=== PATIENT | male | born 1945 ===

== ENCOUNTER 2017-10-05 11:43 | Emergency (ER) | payer MEDICARE ==
[2017-10-05 11:47] VITALS: BMI 32.5
[2017-10-05 11:50] VITALS: RESP 18; O2SAT 96
[2017-10-05] MEDS ORDERED: LIDOCAIN/EPI 1-0.001% 10ML INJ SOL IJ ONE (12:25)
--- NOTE | 2017-10-05 12:25 | ED PDOC ---
Arrival/HPI - General Chief Complaint: Trauma Time Seen by Provider: 10/05/17 12:24 Historian: Patient - History of Present Illness Narrative History of Present Illness (Text): 10/05/17 12:25 This 71 yo male with a pmh htn, presents to this ED c/o right forearm laceration x [employer]. Patient stated while standing on a ladder, he fell down. He said he cut his forearm with edge of a chimney. Last tetanus was 6 years ago. Patient has FROM of forearm, wrist, hand, elbow and shoulder. Patient denies head injury, neck pain, dizziness, weakness, paresthesias, or abnormal gait. Time/Duration: Other (see hpi) Context: Home Past Medical History - Provider Review Nursing Documentation Reviewed: Yes - Infectious Disease Hx of Infectious Diseases: None - Cardiac Hx Pacemaker: Yes - Genitourinary/Gynecological Hx Prostate Cancer: Yes Hx Prostate Problems: Yes - Psychiatric Hx Substance Use: No - Surgical History Hx Appendectomy: Yes Hx Cholecystectomy: Yes Other/Comment: bypass surgery. Unknown type of brain surgery Family/Social History - Physician Review Nursing Documentation Reviewed: Yes Family/Social History: Other (noncontributory) Smoking Status: Never Smoked Hx Alcohol Use: No Hx Substance Use: No Allergies/Home Meds Allergies/Adverse Reactions: Allergies No Known Allergies Allergy (Verified 10/05/17 11:47) Home Medications: Home Meds Medication Instructions Recorded Confirmed Aspirin [Aspirin Chewable] 81 mg PO DAILY 10/05/17 10/05/17 Losartan [Cozaar] 25 mg PO DAILY 10/05/17 10/05/17 Review of Systems - Review of Systems Constitutional: Normal. absent: Fatigue, Weight Change, Fevers Eyes: Normal ENT: Normal Respiratory: Normal Cardiovascular: Normal Gastrointestinal: Normal Genitourinary Male: Normal Musculoskeletal: Other (se hpi) Skin: Normal Neurological: Normal Endocrine: Normal Hemo/Lymphatic: Normal Psychiatric: Normal Physical Exam Vital Signs Temp Pulse Resp BP Pulse Ox 10/05/17 13:54 98.4 F 82 18 152/82 H 96 10/05/17 13:36 82 18 152/82 H 96 10/05/17 11:44 98.7 F 87 18 156/77 H 96 Temperature: Afebrile Blood Pressure: Normal Pulse: Regular Respiratory Rate: Normal Appearance: Positive for: Well-Appearing, Non-Toxic, Comfortable Pain Distress: None Mental Status: Positive for: Alert and Oriented X 3 - Systems Exam Head: Present: Atraumatic, Normocephalic, Other (no raccoon sign. no rosas sign) Pupils: Present: PERRL, Other (no hyphema) Extroacular Muscles: Present: EOMI. No: Entrapment Conjunctiva: Present: Normal Ears: Present: Normal, NORMAL TM, Normal Canal, Other (no hemotympanum). No: Erythema, TM Bulging, Fluid Mouth: Present: Moist Mucous Membranes Nose (External): Present: Atraumatic Nose (Internal): Present: Normal Inspection Neck: Present: Normal Range of Motion, Trachea Midline. No: Meningeal Signs, MIDLINE TENDERNESS, Paraspinal Tenderness, Lymphadenopathy Respiratory/Chest: Present: Clear to Auscultation, Good Air Exchange. No: Respiratory Distress, Accessory Muscle Use, Retracting, Rhonchi Cardiovascular: Present: Regular Rate and Rhythm, Normal S1, S2. No: Murmurs Abdomen: No: Tenderness, Distention, Peritoneal Signs, Rebound, Guarding Back: Present: Normal Inspection. No: CVA Tenderness Upper Extremity: Present: Normal Inspection, Normal ROM. No: Cyanosis, Edema Lower Extremity: Present: Normal Inspection, Normal ROM. No: Edema Neurological: Present: GCS=15, CN II-XII Intact, Speech Normal, Motor Func Grossly Intact, Normal Sensory Function, Normal Cerebellar Funct, Gait Normal Skin: Present: Warm, Dry, Normal Color. No: Rashes Psychiatric: Present: Alert, Oriented x 3, Normal Insight, Normal Concentration Medical Decision Making ED Course and Treatment: 10/05/17 13:38 Re-evaluation. Patient feels better. Discussed results and plan with patient who expresses understanding. All questions answered and there is agreement with the plan to discharge home with instructions. Patient stable for discharge. Return if symptoms persist or worsen. PROCEDURE: LACERATION REPAIR Performed by the emergency provider Location: right forearm Length: 15 cm Description: clean wound edges, no foreign bodies Distal CMS: Normal. No deficits. Neurovascularly intact. Anesthesia: Lidocaine 1% with Epi. approx. 3 cc Preparation: The wound was cleaned with NS and [place]. The area was prepped and draped in the usual sterile fashion. Exploration: The wound was explored and no foreign bodies were found. Procedure: The wound was closed with Vicryl, 4-0, interrupted, single layer. There was good approximation. In total, 15 sutures were used. Post-Procedure: Good closure and hemostasis. The patient tolerated the procedure well and there were no complications. CSM remains intact. Post procedure dressing applied. Re-evaluation Time: 13:44 Reassessment Condition: Re-examined, Improved - Medication Orders Current Medication Orders: Discontinued Medications Cephalexin Monohydrate (Keflex) 500 mg PO STAT STA PRN Reason: Protocol Stop: 10/05/17 12:26 Last Admin: 10/05/17 12:40 Dose: 500 mg Tetanus/Reduced Diphtheria/Acell Pertussis (Boostrix Vaccine Inj) 0.5 ml IM .ONCE ONE Stop: 10/05/17 12:27 Last Admin: 10/05/17 12:40 Dose: 0.5 ml Immunization Registry Document 10/05/17 12:40 [facility] [place] 10/05/17 12:40 [facility] [place] [id number] Immunization Registry Consent Date 10/05/17 Disposition/Present on Arrival - Present on Arrival Any Indicators Present on Arrival: No History of DVT/PE: No History of Uncontrolled Diabetes: No Urinary Catheter: No History of Decub. Ulcer: No History Surgical Site Infection Following: None - Disposition Have Diagnosis and Disposition been Completed?: Yes Diagnosis: Laceration of forearm without complication Disposition: HOME/ ROUTINE Disposition Time: 13:44 Patient Plan: Discharge Condition: GOOD Additional Instructions: Call private doctor for follow up visit and wound check in 2-3 days. keep wound clean and dry for 2 days, then clean wound daily with soap and water and apply topical Neosporin ointment. Try to avoid sweating so wound would heal fine. return to emergency if wound becomes infected. Stitches are absorbable so they do not need to be removed, however, is suture still present after 2 weeks, return to ED to get them removed. Prescriptions: Cephalexin [Keflex] 500 mg PO QID #28 capsule oxyCODONE/Acetaminophen 1/2TAB [Percocet 5-325 mg HALF TAB] 0.5 ea PO Q4H PRN # 5 tab PRN Reason: Pain, Severe (8-10) [facility] - Follow up with primary Brando Page DO [Staff Provider] - Follow up with primary Forms: TRELYS (Colombian)
[2017-10-05] MEDS ORDERED: TDAP Vaccine 0.5 mL Syr IM ONE (12:26)
[2017-10-05 13:42] VITALS: BP 152/82; PULSE 82
[2017-10-05 13:56] VITALS: TEMP 98.4
== END 2017-10-05 13:56 | disposition home or self-care (01) ==
LOC: ED 11:43
DX: S51.812A Laceration without foreign body of left forearm, initial encounter (principal); W45.8XXA Other foreign body or object entering through skin, initial encounter; Y92.008 Other place in unspecified non-institutional (private) residence as the place of occurrence of the external cause; Z23 Encounter for immunization